=== PATIENT | female | born 1965 | race Caucasian/White ===

== ENCOUNTER 2020-11-22 04:19 | Emergency (ER) | payer OTHER ==
[~2020-11-22] VITALS: Ht 157.5 cm; Wt 54.5 kg
[~2020-11-22 04:19] MED LIST: LEVO112T25 PO; NOR5T PO; OXYC20TA55 PO; ZOF4T PO
[2020-11-22] MEDS ORDERED: ondansetron/PF 4mg/2ml inj IV ONE (04:40)
[2020-11-22] MEDS ORDERED: normal saline 1000ML IV soln IVB ONE (04:40)
[2020-11-22] MEDS ORDERED: morphine 4 MG/ML inj SYRINge IV ONE ×2 (04:50→06:55)
[2020-11-22 05:49] LABS: ALANINE AMINOTRANSFERASE 23 U/L (12-78); ALBUMIN 4.7 G/DL (3.4-5.0); ALBUMIN/GLOBULIN RATIO 1.3 (1.1-1.5); ALKALINE PHOSPHATASE 84 IU/L (46-116); ANION GAP 15 (8-16); ASPARTATE AMINO TRANSFERASE 33 U/L (10-37); BILIRUBIN,TOTAL 0.7 MG/DL (0.1-1.0); BLOOD UREA NITROGEN 26 MG/DL (7-18); BUN/CREATININE RATIO 24.1 (6.6-38.0); CALCIUM 9.3 MG/DL (8.5-10.1); CHLORIDE 102 MMOL/L (99-107); CREATININE 1.08 MG/DL (0.40-0.90); GLUCOSE 163 MG/DL (70-104); POTASSIUM 3.5 MMOL/L (3.5-5.1); SODIUM 142 MMOL/L (135-145); TOTAL CARBON DIOXIDE 25.2 MMOL/L (24-32); TOTAL PROTEIN 8.2 G/DL (6.4-8.2); eGFR 52 ML/MIN
[2020-11-22 06:09] LABS: BASOPHILS # (AUTO) 0.2 X10'3 (0-0.2); EOSINOPHILS % (AUTO) 0.1 % (0-6); HEMATOCRIT 44.2 % (35.0-45.0); HEMOGLOBIN 14.4 g/dl (12.0-16.0); LYMPHOCYTES # (AUTO) 2.4 X10'3 (1.1-4.8); LYMPHOCYTES % (AUTO) 12.1 % (21-51); MEAN CORPUSCULAR HEMOGLOBIN 31.4 PG (27.0-31.0); MEAN CORPUSCULAR HGB CONC 32.7 g/dL (33.0-36.5); MEAN CORPUSCULAR VOLUME 96.1 FL (78-98); MEAN PLATELET VOLUME 8.3 FL (7.4-10.4); MONOCYTES # (AUTO) 1.2 X10'3 (0-0.9); NEUTROPHILS # (AUTO) 16.2 X10'3 (1.8-7.7); NEUTROPHILS % (AUTO) 80.8 % (42-75); PLATELET COUNT 343 X10'3 (140-440); RED CELL DISTRIBUTION WIDTH 13.4 % (11.5-14.5)
[2020-11-22 06:21] LABS: CLARITY,URINE SLIGHTLY CLOUDY (Clear); COLOR,URINE YELLOW (Yellow); GLUCOSE, URINE NEGATIVE (Neg); KETONES,URINE 15 mg/dl (Neg); LEUKOCYTE ESTERASE ,URINE NEGATIVE (Neg); NITRITES, URINE NEGATIVE (Neg); OCCULT BLOOD,URINE NEGATIVE (Neg); PROTEIN,URINE TRACE mg/dl (Neg); UROBILINOGEN,URINE 0.2 E.U/dL (0.2-1.0)
[2020-11-22 06:44] LABS: UA COLLECTION TYPE CLN CATCH MIDSTREAM
[2020-11-22 06:49] LABS: BACTERIA,URINE FEW /HPF (Neg); HYALINE CASTS >30 /LPF (NEGATIVE); MUCUS STRANDS MANY /LPF (Neg)
[2020-11-22 06:50] LABS: RBC,URINE 0-2 /HPF (0-2); SQUAMOUS EPITHELIAL CELL,UR FEW /LPF (FEW); WBC,URINE 0-4 /HPF (0-4)
[2020-11-22 06:51] LABS: TRANSITIONAL EPI CELLS,URINE FEW /HPF
[2020-11-22 07:08] VITALS: BP 148/97
== END 2020-11-22 07:27 | disposition home or self-care (01) ==
LOC: ER 04:21
DX: S70.12XA Contusion of left thigh, initial encounter (principal); S16.1XXA Strain of muscle, fascia and tendon at neck level, initial encounter; S09.90XA Unspecified injury of head, initial encounter; S50.312A Abrasion of left elbow, initial encounter; M54.2 Cervicalgia; R11.2 Nausea with vomiting, unspecified; F12.90 Cannabis use, unspecified, uncomplicated; Z72.89 Other problems related to lifestyle; Z56.0 Unemployment, unspecified; Z98.890 Other specified postprocedural states; Z88.2 Allergy status to sulfonamides; Z88.8 Allergy status to other drugs, medicaments and biological substances; Z79.899 Other long term (current) drug therapy; X58.XXXA Exposure to other specified factors, initial encounter; Y93.89 Activity, other specified; Y92.89 Other specified places as the place of occurrence of the external cause; Y99.8 Other external cause status
CPT/HCPCS: 36415; 70450; 72070; 72125; 80053; 81001; 85025; 96361; 96374; 96375; 96376; 99285; J2270; J2405; J7030

== ENCOUNTER 2020-11-23 21:54 | Emergency (ER) | payer OTHER ==
[~2020-11-23] VITALS: Ht 157.5 cm; Wt 60.5 kg
[2020-11-24] MEDS ORDERED: ondansetron/PF 4mg/2ml inj IV ONE ×2 (00:05→02:25)
[2020-11-24] MEDS ORDERED: normal saline 1000ML IV soln IVB ONE (00:05)
[2020-11-24] MEDS ORDERED: morphine 4 MG/ML inj SYRINge IV ONE ×2 (01:00→01:50)
[2020-11-24] MEDS ORDERED: ONDA4TAB6 PO (01:50)
[2020-11-24] MEDS ORDERED: HYDR-3965 PO (01:50)
[2020-11-24 02:34] VITALS: BP 136/98
== END 2020-11-24 02:48 | disposition home or self-care (01) ==
LOC: ER 21:56
DX: S16.1XXA Strain of muscle, fascia and tendon at neck level, initial encounter (principal); R11.2 Nausea with vomiting, unspecified; R51.9 Headache, unspecified; F12.90 Cannabis use, unspecified, uncomplicated; Z98.890 Other specified postprocedural states; Z56.0 Unemployment, unspecified; Z88.2 Allergy status to sulfonamides; Z88.8 Allergy status to other drugs, medicaments and biological substances; Z79.899 Other long term (current) drug therapy; W18.39XA Other fall on same level, initial encounter; Y93.89 Activity, other specified; Y92.89 Other specified places as the place of occurrence of the external cause; Y99.8 Other external cause status
CPT/HCPCS: 96361; 96374; 96375; 96376; 99284; J2270; J2405; J7030

== ENCOUNTER 2022-07-22 20:26 | Emergency (ER) | payer OTHER ==
[~2022-07-22] VITALS: Ht 157.5 cm; Wt 56.8 kg
[~2022-07-22 20:26] MED LIST changes: +ONDA4TAB6 PO
[2022-07-22 20:42] VITALS: BP 160/97
[2022-07-23] MEDS ORDERED: normal saline 1000ML IV soln IVB ONE (01:50)
[2022-07-23] MEDS ORDERED: diphenhydrAMINE 50 mg/ml inj IV ONE (01:50)
[2022-07-23] MEDS ORDERED: morphine 4 MG/ML inj SYRINge IV ONE (01:50)
[2022-07-23] MEDS ORDERED: ketorolac trometh. 30mg/ml inj. IV ONE (01:50)
[2022-07-23] MEDS ORDERED: HYDROcodone/acetaminophen 10/325mg tab PO ONE (03:40)
[2022-07-23] MEDS ORDERED: haloperidol lactate 5mg/ml inj IM ONE (03:40)
[2022-07-23] MEDS ORDERED: diphenhydrAMINE 50 mg/ml inj IM ONE (03:40)
[2022-07-23] MEDS ORDERED: metoclopramide 5 mg/ml inj IV ONE (03:40)
[2022-07-23] MEDS ORDERED: orphenadrine citrate 60mg/2ml inj. IM ONE (03:45)
== END 2022-07-23 04:21 | disposition home or self-care (01) ==
LOC: ER 20:27
DX: M54.2 Cervicalgia (principal); R11.2 Nausea with vomiting, unspecified; G62.9 Polyneuropathy, unspecified; F12.10 Cannabis abuse, uncomplicated; E03.9 Hypothyroidism, unspecified; Z88.2 Allergy status to sulfonamides; Z88.8 Allergy status to other drugs, medicaments and biological substances; Z79.899 Other long term (current) drug therapy; Z79.1 Long term (current) use of non-steroidal anti-inflammatories (NSAID); Z56.0 Unemployment, unspecified
CPT/HCPCS: 96361; 96372; 96374; 96375; 99284; J1200; J1885; J2270; J2360; J7030

== ENCOUNTER 2022-08-25 00:41 | Emergency (ER) | payer OTHER ==
[~2022-08-25] VITALS: Ht 157.5 cm; Wt 125.0 kg
[2022-08-25] MEDS ORDERED: ondansetron 4mg rapidly disintigrating tab PO ONE (01:20)
[2022-08-25] MEDS ORDERED: HYDROcodone/acetaminophen 10/325mg tab PO ONE (01:20)
[2022-08-25] MEDS ORDERED: ONDA4TAB12 PO (01:47)
[2022-08-25] MEDS ORDERED: ketorolac trometh. 30mg/ml inj. IV ONE (01:55)
[2022-08-25] MEDS ORDERED: normal saline 1000ML IV soln IVB ONE (01:55)
[2022-08-25 04:07] VITALS: BP 173/98
[2022-08-25] MEDS ORDERED: ORPH100T2 PO (17:31)
== END 2022-08-25 04:09 | disposition home or self-care (01) ==
LOC: ER 00:41
DX: M54.2 Cervicalgia (principal); G62.9 Polyneuropathy, unspecified; R11.2 Nausea with vomiting, unspecified; R51.9 Headache, unspecified; R20.0 Anesthesia of skin; G89.29 Other chronic pain; F12.90 Cannabis use, unspecified, uncomplicated; Z56.0 Unemployment, unspecified; Z72.89 Other problems related to lifestyle; Z98.890 Other specified postprocedural states; Z88.2 Allergy status to sulfonamides; Z88.8 Allergy status to other drugs, medicaments and biological substances; Z79.899 Other long term (current) drug therapy
CPT/HCPCS: 96374; 99283; J1885; J7030

== ENCOUNTER 2022-08-25 14:40 | Emergency (ER) | payer OTHER ==
[~2022-08-25] VITALS: Ht 157.5 cm; Wt 56.8 kg
[~2022-08-25 14:40] MED LIST changes: +ONDA4TAB12 PO
[2022-08-25 14:55] VITALS: BP 183/110
[2022-08-25] MEDS ORDERED: ondansetron 4mg rapidly disintigrating tab PO ONE (16:30)
[2022-08-25] MEDS ORDERED: morphine 4 MG/ML inj SYRINge IV ONE (16:30)
[2022-08-25] MEDS ORDERED: diphenhydrAMINE 50 mg/ml inj IV ONE (16:30)
[2022-08-25] MEDS ORDERED: normal saline 1000ML IV soln IVB ONE (16:30)
[2022-08-25] MEDS ORDERED: orphenadrine citrate 60mg/2ml inj. IM ONE (17:15)
[2022-08-25] MEDS ORDERED: ORPH100T2 PO (17:31)
== END 2022-08-25 18:01 | disposition home or self-care (01) ==
LOC: ER 14:41
DX: S16.1XXA Strain of muscle, fascia and tendon at neck level, initial encounter (principal); G89.29 Other chronic pain; M54.50 Low back pain, unspecified; F12.90 Cannabis use, unspecified, uncomplicated; Z88.2 Allergy status to sulfonamides; Z88.1 Allergy status to other antibiotic agents; Z88.8 Allergy status to other drugs, medicaments and biological substances; Z56.0 Unemployment, unspecified; W01.0XXA Fall on same level from slipping, tripping and stumbling without subsequent striking against object, initial encounter; Y93.89 Activity, other specified; Y92.89 Other specified places as the place of occurrence of the external cause; Y99.8 Other external cause status
CPT/HCPCS: 96361; 96372; 96374; 96375; 99284; J1200; J2270; J2360; J7030

== ENCOUNTER 2022-09-05 04:08 | Emergency (ER) | payer OTHER ==
[~2022-09-05] VITALS: Ht 157.5 cm; Wt 56.8 kg
[~2022-09-05 04:08] MED LIST changes: +ORPH100T2 PO
[2022-09-05 04:19] VITALS: BP 146/103
--- NOTE | 2022-09-05 05:08 | NUR ---
pt was being very demanding for benadryl and morphine and was so very upset that the doctor is not giving this to her. Wanted to talk to advocate. Explained to the patient that this staff writer cannot influence what the doctor does or doesn't order. She than raised her voice and said she would go off property and come back when there is a different doctor until she gets what she wants. She also said that [facility] and come back here until she gets what she wants. lead burner supervisor, Kristine was notified who also came down here and talked to the patient. Kristine states the patient said the same things to her.
[2022-09-05] MEDS ORDERED: ketorolac trometh inj. 60 MG/2 ML VIAL IM ONE (05:25)
== END 2022-09-05 05:37 | disposition home or self-care (01) ==
LOC: ER 04:09
DX: M54.2 Cervicalgia (principal); G89.29 Other chronic pain; M79.2 Neuralgia and neuritis, unspecified; E07.9 Disorder of thyroid, unspecified; M54.9 Dorsalgia, unspecified; Z88.2 Allergy status to sulfonamides; Z88.8 Allergy status to other drugs, medicaments and biological substances; Z88.1 Allergy status to other antibiotic agents; Z79.899 Other long term (current) drug therapy
CPT/HCPCS: 96372; 99283; J1885

== ENCOUNTER 2022-09-05 07:10 | Emergency (ER) | payer OTHER ==
[~2022-09-05] VITALS: Ht 157.5 cm; Wt 156.0 kg
[2022-09-05] MEDS ORDERED: LIDOcaine 5% patch TP STA (09:41)
[2022-09-05] MEDS ORDERED: acetaminophen 325mg tablet PO ONE (09:45)
[2022-09-05 12:01] VITALS: BP 110/96
== END 2022-09-05 10:10 | disposition home or self-care (01) ==
LOC: ER 07:11
DX: M54.2 Cervicalgia (principal); E07.9 Disorder of thyroid, unspecified; G89.29 Other chronic pain; M54.9 Dorsalgia, unspecified; F12.10 Cannabis abuse, uncomplicated; Z88.2 Allergy status to sulfonamides; Z88.5 Allergy status to narcotic agent; Z88.8 Allergy status to other drugs, medicaments and biological substances; Z79.899 Other long term (current) drug therapy
CPT/HCPCS: 99283

== ENCOUNTER 2022-09-06 04:00 | Emergency (ER) | payer OTHER ==
[~2022-09-06] VITALS: Ht 157.5 cm; Wt 53.0 kg
[2022-09-06] MEDS ORDERED: ondansetron/PF 4mg/2ml inj IV ONE (07:35)
[2022-09-06] MEDS ORDERED: normal saline 1000ML IV soln IV ONE (07:35)
[2022-09-06] MEDS ORDERED: diphenhydrAMINE 50 mg/ml inj IV ONE (07:35)
[2022-09-06 08:28] LABS: BASOPHILS # (AUTO) 0.1 X10'3 (0-0.2); BASOPHILS % (AUTO) 0.5 % (0-1); EOSINOPHILS % (AUTO) 0.3 % (0-6); HEMATOCRIT 45.5 % (35.0-45.0); HEMOGLOBIN 14.9 g/dl (12.0-16.0); LYMPHOCYTES # (AUTO) 2.9 X10'3 (1.1-4.8); LYMPHOCYTES % (AUTO) 25.8 % (21-51); MEAN CORPUSCULAR HGB CONC 32.7 g/dL (33.0-36.5); MEAN CORPUSCULAR VOLUME 94.9 FL (78-98); MONOCYTES # (AUTO) 0.6 X10'3 (0-0.9); MONOCYTES % (AUTO) 5.7 % (2-12); NEUTROPHILS # (AUTO) 7.6 X10'3 (1.8-7.7); NEUTROPHILS % (AUTO) 67.7 % (42-75); PLATELET COUNT 320 X10'3 (140-440); RED BLOOD COUNT 4.79 X10'6 (4.20-5.60); WHITE BLOOD COUNT 11.2 X10'3 (4.5-11.0)
[2022-09-06 08:48] LABS: ALANINE AMINOTRANSFERASE 23 U/L (12-78); ALBUMIN 4.7 G/DL (3.4-5.0); ALBUMIN/GLOBULIN RATIO 1.4 (1.1-1.5); ALKALINE PHOSPHATASE 81 IU/L (46-116); ANION GAP 11 (8-16); ASPARTATE AMINO TRANSFERASE 28 U/L (10-37); BILIRUBIN,TOTAL 0.7 MG/DL (0.1-1.0); BLOOD UREA NITROGEN 20 MG/DL (7-18); CALCIUM 9.7 MG/DL (8.5-10.1); CHLORIDE 104 MMOL/L (99-107); CREATININE 0.91 MG/DL (0.40-0.90); GLUCOSE 125 MG/DL (70-104); POTASSIUM 3.9 MMOL/L (3.5-5.1); SODIUM 142 MMOL/L (135-145); TOTAL CARBON DIOXIDE 27.4 MMOL/L (24-32); TOTAL PROTEIN 8.1 G/DL (6.4-8.2); eGFR 63 ML/MIN
[2022-09-06 09:44] VITALS: BP 154/82
== END 2022-09-06 09:46 | disposition home or self-care (01) ==
LOC: ER 04:00
DX: M54.2 Cervicalgia (principal); E86.0 Dehydration; R20.8 Other disturbances of skin sensation; G89.29 Other chronic pain; M54.9 Dorsalgia, unspecified; F12.10 Cannabis abuse, uncomplicated; Z56.0 Unemployment, unspecified; Z88.2 Allergy status to sulfonamides; Z79.899 Other long term (current) drug therapy; Z88.1 Allergy status to other antibiotic agents; Z79.1 Long term (current) use of non-steroidal anti-inflammatories (NSAID)
CPT/HCPCS: 36415; 80053; 85025; 96361; 96374; 96375; 99284; J1200; J2405; J7030

== ENCOUNTER 2022-09-13 15:28 | Emergency (ER) | payer OTHER ==
[~2022-09-13] VITALS: Ht 157.5 cm; Wt 56.0 kg
[2022-09-13] MEDS ORDERED: ondansetron/PF 4mg/2ml inj IV ONE (18:40)
[2022-09-13] MEDS ORDERED: diazepam inj 5 MG/ML inj. IV ONE (18:40)
[2022-09-13] MEDS ORDERED: normal saline 1000ml 1,000 ML IV ONE (18:40)
[2022-09-13] MEDS ORDERED: ketorolac trometh. 30mg/ml inj. IV ONE (18:40)
[2022-09-13] MEDS ORDERED: DICL100G30 TOP (20:19)
[2022-09-13] MEDS ORDERED: LIDO700A32 TOP (20:19)
[2022-09-13] MEDS ORDERED: diphenhydrAMINE 25mg capsule PO ONE (20:20)
[2022-09-13] MEDS ORDERED: morphine 4 MG/ML inj SYRINge IV ONE (20:20)
[2022-09-13 20:38] VITALS: BP 122/76
== END 2022-09-13 20:39 | disposition home or self-care (01) ==
LOC: ER 15:29
DX: G89.29 Other chronic pain (principal); R51.9 Headache, unspecified; R11.2 Nausea with vomiting, unspecified; E86.0 Dehydration; F12.90 Cannabis use, unspecified, uncomplicated; Z56.0 Unemployment, unspecified; Z72.89 Other problems related to lifestyle; Z79.899 Other long term (current) drug therapy
CPT/HCPCS: 96361; 96374; 96375; 99284; J1885; J2270; J2405; J3360; J7030; Q0163

== ENCOUNTER 2023-08-28 08:20 | Emergency (ER) | payer OTHER ==
[~2023-08-28] VITALS: Ht 157.5 cm; Wt 53.7 kg
[~2023-08-28 08:20] MED LIST changes: +DICL100G59 TOP; +LIDO700A32 TOP; -ORPH100T2 PO; +ORPH100T4 PO
[2023-08-28 08:26] VITALS: TEMP 98
[2023-08-28] MEDS ORDERED: dexamethasone sod phosphate 10mg/ml inj IM STA (09:28)
[2023-08-28] MEDS ORDERED: ondansetron/PF 4mg/2ml inj IM ONE (09:30)
[2023-08-28] MEDS ORDERED: diphenhydrAMINE 50 mg/ml inj IM ONE (09:30)
[2023-08-28] MEDS ORDERED: ketorolac trometh inj. 60 MG/2 ML VIAL IM ONE (09:30)
[2023-08-28] MEDS ORDERED: cyclobenzaprine 10mg tablet PO ONE (09:30)
[2023-08-28] MEDS ORDERED: ondansetron 4mg rapidly disintigrating tab PO ONE (10:35)
[2023-08-28] MEDS ORDERED: magnesium sulf injection 1 GM in normal saline 50ml IV soln 50 ML IV ONE (10:55)
[2023-08-28] MEDS ORDERED: metoclopramide 5 mg/ml inj IV ONE (11:00)
[2023-08-28] MEDS ORDERED: diphenhydrAMINE 50 mg/ml inj IV ONE (11:00)
[2023-08-28 11:52] LABS: BASOPHILS # (AUTO) 0.1 X10'3 (0-0.2); BASOPHILS % (AUTO) 0.6 % (0-1); EOSINOPHILS % (AUTO) 0.2 % (0-6); HEMATOCRIT 47.1 % (35.0-45.0); HEMOGLOBIN 15.5 g/dl (12.0-16.0); LYMPHOCYTES # (AUTO) 2.3 X10'3 (1.1-4.8); LYMPHOCYTES % (AUTO) 18.9 % (21-51); MEAN CORPUSCULAR HEMOGLOBIN 31.3 PG (27.0-31.0); MEAN CORPUSCULAR HGB CONC 32.9 g/dL (33.0-36.5); MEAN CORPUSCULAR VOLUME 95.1 FL (78-98); MEAN PLATELET VOLUME 7.8 FL (7.4-10.4); MONOCYTES # (AUTO) 0.8 X10'3 (0-0.9); MONOCYTES % (AUTO) 6.3 % (2-12); NEUTROPHILS # (AUTO) 8.9 X10'3 (1.8-7.7); PLATELET COUNT 282 X10'3 (140-440); RED BLOOD COUNT 4.96 X10'6 (4.20-5.60); WHITE BLOOD COUNT 12.1 X10'3 (4.5-11.0)
[2023-08-28] MEDS ORDERED: MAGNESIUM IV ONE (12:10)
[2023-08-28] MEDS ORDERED: NS IV ONE (12:10)
[2023-08-28 12:13] LABS: ALANINE AMINOTRANSFERASE 17 U/L (12-78); ALBUMIN 4.4 G/DL (3.4-5.0); ALBUMIN/GLOBULIN RATIO 1.2 (1.1-1.5); ALKALINE PHOSPHATASE 87 IU/L (46-116); ANION GAP 9 (8-16); ASPARTATE AMINO TRANSFERASE 22 U/L (10-37); BILIRUBIN,TOTAL 0.5 MG/DL (0.1-1.0); BLOOD UREA NITROGEN 25 MG/DL (7-18); BUN/CREATININE RATIO 24.5 (10.0-20.0); CALCIUM 9.8 MG/DL (8.5-10.1); CHLORIDE 101 MMOL/L (99-107); CREATININE 1.02 MG/DL (0.40-0.90); GLUCOSE 111 MG/DL (70-104); POTASSIUM 4.2 MMOL/L (3.5-5.1); SODIUM 139 MMOL/L (135-145); TOTAL CARBON DIOXIDE 28.7 MMOL/L (24-32); TOTAL PROTEIN 8.2 G/DL (6.4-8.2); eCRCL 46 ML/MIN; eGFR 55 ML/MIN
[2023-08-28 12:21] LABS: MAGNESIUM 2.2 MG/DL (1.5-2.4); PRO BRAIN NATRIURETIC PEPTIDE 47 PG/ML (0-125)
[2023-08-28] MEDS ORDERED: orphenadrine citrate 60mg/2ml inj. IM ONE (13:45)
[2023-08-28 15:32] LABS: BILIRUBIN,URINE NEGATIVE (Neg); CLARITY,URINE CLEAR (Clear); COLOR,URINE YELLOW (Yellow); GLUCOSE, URINE NEGATIVE (Neg); KETONES,URINE NEGATIVE (Neg); LEUKOCYTE ESTERASE ,URINE NEGATIVE (Neg); NITRITES, URINE NEGATIVE (Neg); OCCULT BLOOD,URINE NEGATIVE (Neg); PROTEIN,URINE NEGATIVE (Neg); UROBILINOGEN,URINE 0.2 E.U/dL (0.2-1.0)
[2023-08-28 15:38] LABS: UA COLLECTION TYPE CLN CATCH MIDSTREAM
[2023-08-28] MEDS ORDERED: HYDROcodone/acetaminophen 10/325mg tab PO ONE (15:40)
[2023-08-28] MEDS ORDERED: CYCL-394 PO (15:43)
[2023-08-28] MEDS ORDERED: LIDO120C3 TP (15:43)
[2023-08-28 15:48] LABS: URINE AMPHETAMINE SCREEN NEGATIVE (Neg); URINE BARBITUATE SCREEN NEGATIVE (Neg); URINE BENZODIAZEPINES SCREEN NEGATIVE (Neg); URINE CANNABINOID SCREEN POSITIVE (Neg); URINE COCAINE SCREEN NEGATIVE (Neg); URINE METHADONE SCREEN NEGATIVE (Neg); URINE OPIATE SCREEN POSITIVE (Neg); URINE PHENCYCLIDINE SCREEN NEGATIVE (Neg)
[2023-08-28 16:52] VITALS: BP 145/91; PULSE 98; RESP 14; O2SAT 100
[2023-08-29] MEDS ORDERED: ONDA4TAB12 PO (23:22)
[2023-08-29] MEDS ORDERED: IBUP-1984 PO (23:22)
[2023-08-29] MEDS ORDERED: PRED20TA PO ×2 (23:22)
[2023-08-29] MEDS ORDERED: LIDO1ADH19 TOP (23:24)
== END 2023-08-28 16:56 | disposition home or self-care (01) ==
LOC: ER 08:20
DX: M54.2 Cervicalgia (principal); R42 Dizziness and giddiness; E07.9 Disorder of thyroid, unspecified; G89.29 Other chronic pain; M54.9 Dorsalgia, unspecified; F12.10 Cannabis abuse, uncomplicated; Z59.00 Homelessness unspecified; Z88.2 Allergy status to sulfonamides; Z88.8 Allergy status to other drugs, medicaments and biological substances; Z88.5 Allergy status to narcotic agent
CPT/HCPCS: 36415; 71045; 72050; 80053; 80305; 81003; 83735; 83880; 84484; 85025; 93005; 96365; 96372; 96375; 99285; J1200; J2360; J3475; J3490

== ENCOUNTER 2023-08-29 20:52 | Emergency (ER) | payer OTHER ==
[~2023-08-29] VITALS: Ht 154.9 cm; Wt 52.1 kg
[~2023-08-29 20:52] MED LIST changes: +CYCL-394 PO; +LIDO120C3 TP
[2023-08-29] MEDS: ondansetron/PF 4mg/2ml inj IV ONE (22:25)
[2023-08-29] MEDS: ketorolac tromethamine 15mg/ml inj. IV ONE (22:27)
[2023-08-29] MEDS: normal saline 1000ML IV soln IVB ONE (22:28)
[2023-08-29 23:16] VITALS: BP 145/94; PULSE 77; RESP 16; TEMP 97.5; O2SAT 99
[2023-08-29] MEDS ORDERED: IBUP-1984 PO (23:22)
[2023-08-29] MEDS ORDERED: PRED20TA PO (23:22)
[2023-08-29] MEDS ORDERED: ONDA4TAB12 PO (23:22)
[2023-08-29] MEDS ORDERED: LIDO1ADH19 TOP (23:24)
== END 2023-08-29 23:35 | disposition home or self-care (01) ==
LOC: ER 20:53
DX: S16.1XXA Strain of muscle, fascia and tendon at neck level, initial encounter (principal); F12.90 Cannabis use, unspecified, uncomplicated; M54.2 Cervicalgia; G89.29 Other chronic pain; Z88.2 Allergy status to sulfonamides; Z88.1 Allergy status to other antibiotic agents; Z88.8 Allergy status to other drugs, medicaments and biological substances; Z79.1 Long term (current) use of non-steroidal anti-inflammatories (NSAID); Z79.2 Long term (current) use of antibiotics; Z79.899 Other long term (current) drug therapy; X58.XXXA Exposure to other specified factors, initial encounter; Y93.89 Activity, other specified; Y92.89 Other specified places as the place of occurrence of the external cause; Y99.8 Other external cause status
CPT/HCPCS: 96361; 96374; 96375; 99284; J1885; J2405; J7030

== ENCOUNTER 2024-07-05 20:24 | Emergency (ER) | payer OTHER ==
[~2024-07-05] VITALS: Ht 157.5 cm; Wt 49.0 kg
[~2024-07-05 20:24] MED LIST changes: -CYCL-394 PO; +LIDO1ADH19 TOP; +ONDA-243 PO; -ONDA4TAB12 PO
[2024-07-05] MEDS: ondansetron/PF 4mg/2ml inj IV ONE (20:41)
[2024-07-05 20:56] LABS: BASOPHILS # (AUTO) 0.1 X10'3 (0-0.2); BASOPHILS % (AUTO) 0.9 % (0-1); EOSINOPHILS % (AUTO) 0 % (0-6); HEMATOCRIT 45.8 % (35.0-45.0); HEMOGLOBIN 15.6 g/dl (12.0-16.0); LYMPHOCYTES # (AUTO) 1.5 X10'3 (1.1-4.8); MEAN CORPUSCULAR HEMOGLOBIN 32.6 PG (27.0-31.0); MEAN CORPUSCULAR HGB CONC 34.1 g/dL (33.0-36.5); MEAN CORPUSCULAR VOLUME 95.4 FL (78-98); MEAN PLATELET VOLUME 7.8 FL (7.4-10.4); MONOCYTES # (AUTO) 0.2 X10'3 (0-0.9); NEUTROPHILS # (AUTO) 10.8 X10'3 (1.8-7.7); NEUTROPHILS % (AUTO) 85.1 % (42-75); PLATELET COUNT 302 X10'3 (140-440); RED CELL DISTRIBUTION WIDTH 13.3 % (11.5-14.5); WHITE BLOOD COUNT 12.6 X10'3 (4.5-11.0)
[2024-07-05] MEDS: morphine 4 MG/ML inj SYRINge IV ONE (21:01)
[2024-07-05] MEDS: haloperidol lactate 5mg/ml inj IVH ONE (21:08)
[2024-07-05 21:14] LABS: ALANINE AMINOTRANSFERASE 18 U/L (12-78); ALBUMIN 4.2 G/DL (3.4-5.0); ALBUMIN/GLOBULIN RATIO 1.1 (1.1-1.5); ALKALINE PHOSPHATASE 91 IU/L (46-116); ANION GAP 13 (8-16); ASPARTATE AMINO TRANSFERASE 21 U/L (10-37); BILIRUBIN,DIRECT 0.2 MG/DL (0-0.3); BILIRUBIN,TOTAL 0.7 MG/DL (0.1-1.0); BLOOD UREA NITROGEN 19 MG/DL (7-18); BUN/CREATININE RATIO 16.7 (10.0-20.0); CALCIUM 9.2 MG/DL (8.5-10.1); CHLORIDE 103 MMOL/L (99-107); CREATININE 1.14 MG/DL (0.40-0.90); GLUCOSE 197 MG/DL (70-104); LIPASE 42 U/L (16-77); POTASSIUM 3.5 MMOL/L (3.5-5.1); SODIUM 142 MMOL/L (135-145); TOTAL CARBON DIOXIDE 26.2 MMOL/L (24-32); TOTAL PROTEIN 8.2 G/DL (6.4-8.2); eCRCL 41 ML/MIN; eGFR 49 ML/MIN
[2024-07-05] MEDS ORDERED: OXYC-145 PO (23:12)
[2024-07-05] MEDS ORDERED: ONDA-245 PO (23:12)
[2024-07-05] MEDS: oxyCODONE/APAP 5-325mg tablet PO ONE (23:38)
[2024-07-05] MEDS: normal saline 1000ML IV soln IVB ONE (23:38)
[2024-07-06 00:34] VITALS: BP 151/54; PULSE 81; RESP 20; TEMP 100.1; O2SAT 97
== END 2024-07-06 00:37 | disposition home or self-care (01) ==
LOC: ER 20:24
DX: G89.29 Other chronic pain (principal); M54.2 Cervicalgia; R51.9 Headache, unspecified; R11.2 Nausea with vomiting, unspecified; F12.90 Cannabis use, unspecified, uncomplicated; Z98.890 Other specified postprocedural states; Z88.2 Allergy status to sulfonamides; Z88.8 Allergy status to other drugs, medicaments and biological substances
CPT/HCPCS: 36415; 80048; 80076; 83690; 85025; 96361; 96374; 96375; 99284; J1630; J2270; J2405; J7030

== ENCOUNTER 2024-07-10 12:42 | Emergency (ER) | payer OTHER ==
[~2024-07-10] VITALS: Ht 157.5 cm; Wt 57.3 kg
[~2024-07-10 12:42] MED LIST changes: +ONDA-245 PO; +OXYC-145 PO
[2024-07-10 13:39] LABS: ABG HCO3 23.2 mmol/L (21.0-28.0); ABG OXYGEN SATURATION 97.9 % (94.0-98.0); ABG PCO2 (T) 30.8 mmHg (32.0-45.0); ABG PH (T) 7.494 (7.350-7.450); ABG PO2 (T) 91.5 mmHg (83.0-108.0); ALLEN'S TEST POSITIVE; FCOHb 0.4 % (0.5-1.5); FHHb 2.1 % (0.0-5.0); FMetHb 0.1 % (0.0-1.5); FO2Hb 97.4 % (94.0-98.0); MODE ROOM AIR; TOTAL HEMOGLOBIN 16.2 G/dl (12.0-16.0)
[2024-07-10 13:40] LABS: BASOPHILS # (AUTO) 0.1 X10'3 (0-0.2); BASOPHILS % (AUTO) 0.5 % (0-1); EOSINOPHILS % (AUTO) 0.1 % (0-6); HEMATOCRIT 48.6 % (35.0-45.0); HEMOGLOBIN 16.2 g/dl (12.0-16.0); LYMPHOCYTES # (AUTO) 2.7 X10'3 (1.1-4.8); LYMPHOCYTES % (AUTO) 22.8 % (21-51); MEAN CORPUSCULAR HEMOGLOBIN 32.6 PG (27.0-31.0); MEAN CORPUSCULAR HGB CONC 33.4 g/dL (33.0-36.5); MEAN CORPUSCULAR VOLUME 97.7 FL (78-98); MEAN PLATELET VOLUME 8.3 FL (7.4-10.4); MONOCYTES # (AUTO) 0.8 X10'3 (0-0.9); MONOCYTES % (AUTO) 6.5 % (2-12); NEUTROPHILS # (AUTO) 8.3 X10'3 (1.8-7.7); NEUTROPHILS % (AUTO) 70.1 % (42-75); PLATELET COUNT 306 X10'3 (140-440); RED BLOOD COUNT 4.97 X10'6 (4.20-5.60); RED CELL DISTRIBUTION WIDTH 13.4 % (11.5-14.5); WHITE BLOOD COUNT 11.8 X10'3 (4.5-11.0)
[2024-07-10 13:57] LABS: ALBUMIN 4.4 G/DL (3.4-5.0); ANION GAP 12 (8-16); BLOOD UREA NITROGEN 25 MG/DL (7-18); BUN/CREATININE RATIO 23.1 (10.0-20.0); CALCIUM 9.1 MG/DL (8.5-10.1); CHLORIDE 104 MMOL/L (99-107); CREATININE 1.08 MG/DL (0.40-0.90); GLUCOSE 176 MG/DL (70-104); POTASSIUM 3.7 MMOL/L (3.5-5.1); SODIUM 144 MMOL/L (135-145); TOTAL CARBON DIOXIDE 27.7 MMOL/L (24-32); eCRCL 43 ML/MIN; eGFR 52 ML/MIN
[2024-07-10] MEDS: ondansetron/PF 4mg/2ml inj IV ONE (15:59)
[2024-07-10] MEDS: HYDROcodone/acetaminophen 5mg/325mg tablet PO ONE (16:00)
[2024-07-10 16:33] VITALS: BP 134/78; PULSE 78; RESP 16; TEMP 97.8; O2SAT 97
== END 2024-07-10 16:35 | disposition home or self-care (01) ==
LOC: ER 12:42
DX: T59.811A Toxic effect of smoke, accidental (unintentional), initial encounter (principal); G89.29 Other chronic pain; Z88.2 Allergy status to sulfonamides; Z88.8 Allergy status to other drugs, medicaments and biological substances; Z88.5 Allergy status to narcotic agent; Z79.899 Other long term (current) drug therapy; Y92.89 Other specified places as the place of occurrence of the external cause
CPT/HCPCS: 36415; 36600; 71045; 80048; 82803; 85018; 85025; 93005; 96374; 99285; J2405

== ENCOUNTER 2024-07-13 02:27 | Emergency (ER) | payer OTHER ==
[~2024-07-13] VITALS: Ht 162.6 cm; Wt 60.0 kg
[2024-07-13 02:58] VITALS: BP 154/94; PULSE 79; TEMP 98; O2SAT 98
[2024-07-13] MEDS: ketorolac trometh 15mg/ml vial 15 MG/ML ML IV ONE (03:02)
[2024-07-13] MEDS: ondansetron/PF 4mg/2ml inj IV ONE (03:02)
[2024-07-13] MEDS: OXYcodone (OXYCONTIN) Ext Release 15 MG TAB.SR.12H PO ONE (03:10)
[2024-07-13] MEDS: proCHLORperazine 10 MG/2 ml inj IV ONE (03:18)
[2024-07-13 03:32] VITALS: RESP 16
[2024-07-13] MEDS: morphine 4 MG/ML inj SYRINge IM ONE (03:32)
== END 2024-07-13 03:44 | disposition home or self-care (01) ==
LOC: ER 02:28
DX: M43.6 Torticollis (principal); Z88.2 Allergy status to sulfonamides; Z88.8 Allergy status to other drugs, medicaments and biological substances; Z98.890 Other specified postprocedural states; F12.90 Cannabis use, unspecified, uncomplicated
CPT/HCPCS: 96372; 96374; 96375; 99284; J1885; J2270; J2405

== ENCOUNTER 2024-10-20 05:16 | Emergency (ER) | payer OTHER ==
[~2024-10-20] VITALS: Ht 157.5 cm; Wt 54.5 kg
[2024-10-20] MEDS: ketorolac trometh 15mg/ml vial 15 MG/ML ML IV ONE (07:14)
[2024-10-20] MEDS: ondansetron/PF 4mg/2ml inj IV ONE (07:14)
[2024-10-20] MEDS: normal saline 1000ml 1,000 ML IV SCH (07:14)
[2024-10-20] MEDS: diphenhydrAMINE 50 mg/ml inj IV ONE (07:15)
[2024-10-20 07:47] LABS: BASOPHILS % (AUTO) 0.5 % (0-1); EOSINOPHILS # (AUTO) 0.1 X10'3 (0-0.9); EOSINOPHILS % (AUTO) 0.5 % (0-6); HEMATOCRIT 39.1 % (35.0-45.0); LYMPHOCYTES # (AUTO) 2.8 X10'3 (1.1-4.8); LYMPHOCYTES % (AUTO) 29.2 % (21-51); MEAN CORPUSCULAR HEMOGLOBIN 32.5 PG (27.0-31.0); MEAN CORPUSCULAR HGB CONC 33.3 g/dL (33.0-36.5); MEAN CORPUSCULAR VOLUME 97.6 FL (78-98); MEAN PLATELET VOLUME 7.8 FL (7.4-10.4); MONOCYTES # (AUTO) 0.7 X10'3 (0-0.9); MONOCYTES % (AUTO) 7.7 % (2-12); NEUTROPHILS % (AUTO) 62.1 % (42-75); PLATELET COUNT 237 X10'3 (140-440); RED CELL DISTRIBUTION WIDTH 13.2 % (11.5-14.5); WHITE BLOOD COUNT 9.7 X10'3 (4.5-11.0)
[2024-10-20] MEDS: morphine 4 MG/ML inj SYRINge IV ONE (07:57)
[2024-10-20 07:59] LABS: ALANINE AMINOTRANSFERASE 14 U/L (12-78); ALBUMIN/GLOBULIN RATIO 1.1 (1.1-1.5); ALKALINE PHOSPHATASE 68 IU/L (46-116); ANION GAP 10 (8-16); ASPARTATE AMINO TRANSFERASE 14 U/L (10-37); BILIRUBIN,TOTAL 0.4 MG/DL (0.1-1.0); BLOOD UREA NITROGEN 19 MG/DL (7-18); BUN/CREATININE RATIO 31.7 (10.0-20.0); CHLORIDE 113 MMOL/L (99-107); GLUCOSE 79 MG/DL (70-104); SODIUM 147 MMOL/L (135-145); TOTAL CARBON DIOXIDE 24.2 MMOL/L (24-32); TOTAL PROTEIN 5.8 G/DL (6.4-8.2); eCRCL 78 ML/MIN; eGFR > 90 ML/MIN
[2024-10-20] MEDS ORDERED: ONDA-243 PO (08:28)
[2024-10-20] MEDS ORDERED: HYDR-3973 PO (08:28)
[2024-10-20] MEDS: potassium Cl 20 mEq SR tablet PO STA (08:30)
[2024-10-20] MEDS: magnesium sulf-water 2g/50mL 50 ML IV ONE (08:31)
[2024-10-20] MEDS ORDERED: methylPREDNISolone sod succ 125mg/2ml vial IV ONE (09:05)
[2024-10-20] MEDS: albuterol 2.5 MG/3 ML nebule CONTNEB STA (09:35)
[2024-10-20] MEDS: budesonide 0.5mg/2ml UD nebule IH ONE (09:35)
[2024-10-20 10:54] VITALS: BP 125/62; PULSE 80; RESP 16; TEMP 98.8; O2SAT 98
== END 2024-10-20 10:50 | disposition home or self-care (01) ==
LOC: ER 05:16
DX: G89.29 Other chronic pain (principal); M54.9 Dorsalgia, unspecified; F12.90 Cannabis use, unspecified, uncomplicated; E07.9 Disorder of thyroid, unspecified; Z56.0 Unemployment, unspecified; Z88.2 Allergy status to sulfonamides; Z88.8 Allergy status to other drugs, medicaments and biological substances; Z79.899 Other long term (current) drug therapy; Z98.890 Other specified postprocedural states; Z72.89 Other problems related to lifestyle
CPT/HCPCS: 36415; 80053; 85025; 96365; 96366; 96375; 99284; J1200; J1885; J2270; J2405; J7030; A4615

== ENCOUNTER 2025-04-06 22:24 | Emergency (ER) | payer OTHER ==
[~2025-04-06] VITALS: Ht 157.5 cm; Wt 56.9 kg
[~2025-04-06 22:24] MED LIST changes: +LIDO-52 TOP; -LIDO700A32 TOP
--- NOTE | 2025-04-06 22:52 | Physician Documentation ---
History of Present Illness ~ Chief Complaint: Neck pain Stated Complaint: NECK PAIN Time Seen by MD: 22:44 Primary Medical [facility] This is a 59-year-old female with a known history of neck fusion, recurrent flares of torticollis, presents for evaluation of right-sided neck pain that began after she lifted something heavy three days ago. The pain is so severe that it causes her nausea. She is not able to hold anything down. Neck pain is worse with range of motion. Did not attempt to treat it with a any medication but attempted to smoke some marijuana which in turn made her cough, which in turn made her vomit. Denies any chest pain, difficulty breathing, abdominal pain. No concern for tobacco, alcohol or illicit substances use Medication Reconciliation Allergies: Coded Allergies: Sulfa (Sulfonamide Antibiotics) (Unverified Allergy, Severe, 04/06/25) promethazine (Verified Allergy, Intermediate, AFFECTED EYESIGHT, 04/06/25) duloxetine HCl (Unverified Allergy, Unknown, 04/06/25) gabapentin (Unverified Allergy, Unknown, 04/06/25) meloxicam (Unverified Allergy, Unknown, 04/06/25) methadone (Unverified Allergy, Unknown, 04/06/25) metoclopramide HCl (Unverified Allergy, Unknown, 08/25/22) prochlorperazine (Verified Allergy, Unknown, 08/25/22) prochlorperazine edisylate (Unverified Allergy, Unknown, 08/25/22) prochlorperazine maleate (Unverified Allergy, Unknown, 08/25/22) promethazine HCl (Unverified Allergy, Unknown, 08/25/22) Uncoded Allergies: STEROIDS (Allergy, Unknown, 11/22/20) Scheduled Amlodipine* (Norvasc*), 0 MG PO DAILY, (Reported) Diclofenac Sodium (Diclofenac Sodium), 1 APPLIC TOP Q6H Levothyroxine Sodium* (Levoxyl*), 112 MCG PO DAILY, (Reported) Lidocain/Me-Salicyl/Caps/Menth (Sucthjyxa-i-Am Cream), 20 APPLIC TP BID Lidocaine (Lidoderm), 1 PATCH TOP DAILY Lidocaine/Methyl Saad/Menthol (Lidopro Patch), 1 PATCH TOP DAILY Ondansetron Hcl (Zofran), 1 TAB PO Q6H Ondansetron ODT* (Zofran ODT*), 4 MG PO PRN, (Reported) Orphenadrine Citrate (Norflex), 1 TAB PO Q12H PRN Oxycodone Hcl (Oxycodone Hcl), 20 MG PO PRN, (Reported) Scheduled PRN ONDANSETRON ODT 4mg tablet (Ondansetron Odt), 1 TABLET PO Q6H PRN for nausea/vomiting ONDANSETRON ODT 4mg tablet (Ondansetron Odt), 1 TAB PO Q6H PRN PRN for nausea/vomiting ONDANSETRON ODT 4mg tablet (Ondansetron Odt), 1 TAB PO Q6H PRN PRN for nausea/vomiting Ondansetron 8mg ODT (Ondansetron Odt), 1 TAB PO Q8H PRN for nausea/vomiting Oxycodone HCl/Acetaminophen (Percocet 5-325 mg Tablet), 1 TAB PO TID PRN PRN for moderate or severe pain 4-10 Past Medical History Past Medical History: Thyroid (unspecified), Chronic Pain, Chronic Back Pain Past Surgical History: orthopedic surgeries, other Alcohol Use: Occasionally Drug Use: marijuana Lives with: Spouse Lives In: Home Occupation: unemployed Review of Systems ROS 10 point review of systems was performed and unless noted above in HPI is negative for acute process/complaint. Physical Exam Vital Signs: Temperature: 97.4, Source: Temporal, Heart Rate: 82, Respiratory Rate: 17, BP: 186/85, Pulse Oximetry: 100, Weight: 56.900 Physical Exam Physical examination: GENERAL: Awake, alert, oriented, GCS 15, no apparent distress, non-toxic appearing, answers questions, follows commands appropriately. HEENT: Atraumatic, normocephalic, pupils equal, extraocular muscles intact Active gross movements, sclerae anicteric, mucus membranes moist, no stridor. NECK: Midline, no JVD CARDIOVASCULAR: Good skin perfusion without evidence of pallor, mottling. PULMONARY: Nonlabored, symmetric chest rise, no audible wheezing, no accessory muscle use, no respiratory distress, speaking in full sentences. GASTROINTESTINAL: Not distended. NEUROLOGIC: Lucid with normal mental status. Normal facial symmetry. Moves all extremities symmetrically and with purpose. No truncal ataxia. Speech is fluid without evidence of dysarthria or aphasia, no focal deficits appreciated. EXTREMITIES: Acute deformities Skin: warm, dry PSYCHIATRIC: Normal affect, normal insight, normal concentration. Focused exam: There is no tenderness to palpation over midline cervical spine, no step-offs. She denies any trauma. There is muscle spasm of the upper belly of the right trapezius. Progress Results/Orders Results/Orders Completed Orders - CATY PRASAD DO Cbc/Diff (04/06/25 22:47) Lipase (04/06/25 22:47) MG (04/06/25 22:47) Hs Troponin I W Calculations (04/06/25 22:47) CMP (04/06/25 22:47) Orphenadrine Citrate Inj. (Norflex Inj.) (04/06/25 22:50) Normal Saline 1000ml (0.9% Sodium Chlori (04/06/25 23:15) Diphenhydramine Inj (Benadryl Inj.) (04/07/25 00:25) Morphine 4mg/Ml Inj. (Morphine Inj.) (04/07/25 00:25) Medications Received in ER Medications (Trade) Dose Ordered Sig/Shawna Route PRN Reason Start Time Stop Time Status Last Admin Dose Admin (Norflex inj.) 60 mg ONCE ONCE IM 04/06/25 22:50 04/06/25 22:51 DC 04/06/25 22:58 60 MG Sodium Chloride 1,000 ml @ 1,000 mls/hr ONCE ONCE IV 04/06/25 23:15 04/07/25 00:14 DC 04/06/25 23:47 1,000 MLS/HR (Benadryl inj.) 25 mg ONCE ONCE IV 04/07/25 00:25 04/07/25 00:26 DC 04/07/25 00:28 25 MG (morphine inj.) 4 mg ONCE ONCE IV 04/07/25 00:25 04/07/25 00:26 DC 04/07/25 00:31 4 MG Vital Signs 04/06/25 22:33 Temp 97.4 Pulse 82 Resp 17 B/P (MAP) 186/85 Pulse Ox 100 Laboratory Tests Test 9/5/25 23:01 White Blood Count 11.7 H Red Blood Count 4.70 Hemoglobin 15.1 Hematocrit 45.5 H Mean Corpuscular Volume 96.9 Mean Corpuscular Hemoglobin 32.1 H Mean Corpuscular Hemoglobin Concent 33.2 Red Cell Distribution Width 13.2 Platelet Count 325 Mean Platelet Volume 8.0 Neutrophils (%) (Auto) 81.3 H Lymphocytes (%) (Auto) 13.5 L Monocytes (%) (Auto) 4.7 Eosinophils (%) (Auto) 0.2 Basophils (%) (Auto) 0.3 Neutrophils # (Auto) 9.5 H Lymphocytes # (Auto) 1.6 Monocytes # (Auto) 0.6 Eosinophils # (Auto) 0.0 Basophils # (Auto) 0.0 CBC Comment Sodium Level 142 Potassium Level 4.0 Chloride Level 106 Carbon Dioxide Level 25.2 Anion Gap 11 Blood Urea Nitrogen 16 Creatinine 0.94 H Estimated GFR/1.73 m2 61 BUN/Creatinine Ratio 17.0 Glucose Level 161 H Calcium Level 9.3 Magnesium Level 2.3 Total Bilirubin 0.6 Aspartate Amino Transf (AST/SGOT) 15 Alanine Aminotransferase (ALT/SGPT) 24 Alkaline Phosphatase 101 Troponin I High Sensitivity 7 Total Protein 8.2 Albumin 4.4 Globulin 3.8 Albumin/Globulin Ratio 1.2 Lipase 46 Chemistry Comments Medical Decision Making Findings Facility Status: ED Holds, [facility] process The plan was discussed with the patient, who demonstrates clear understanding of the plan and is in agreement with the plan unless otherwise noted in the chart. All questions have been answered, all concerns were addressed unless otherwise documented. I was available throughout their ED stay for frequent reassessment and questions. Differential Diagnoses (considered and possible or likely): [Neck spasm, less likely neck fracture subluxation given lack of trauma, pain causing nausea and vomiting resultant in dehydration, electrolyte derangement.] ??Differential Diagnoses (considered and unlikely, not requiring evaluation currently): [No evidence of brachial plexus injury, no evidence of focal deficits] MDM Data Please see HPI for the following: Independent Historians and external Records Review. Historian: [Patient] Independent Historians: ?[EMS, record review] Medication Management: [Reviewed medication list] Social History and determinants: [Reviewed] Please see the body of the note for the following: Any independent interpretations of ECG, imaging studies. All vitals signs/haemodynamics, ordered tests were independently reviewed and interpreted by myself. Nursing triage complaint and vitals reviewed, additional nursing notes were revi ewed as available and I agree unless otherwise noted or documented in contradiction in the chart Vital Signs: Independently reviewed Labs: Independently interpreted Imaging: Independently interpreted Old Medical Records: Independently reviewed, see HPI for relevant summary and information Pulse Oximetry: [97%] interpreted as [normal on room air] by me [Mesh Cutter: [Regular Rate, Regular rhythm, no ectopy, NSR] reviewed and interpreted by me] Additionally notably showing: [Hemodynamics reviewed. Not febrile, not tachycardic, no evidence of hypotension respiratory distress. CBC normal. No leukocytosis, no anemia, metabolic panel shows mild dehydration. Lipase is normal. Troponin is negative.] Tests considered but not ordered include: [Imaging has been considerably including CT neck, however the patient adamantly denies any trauma] Social Determinants of Health Impact: Patient was evaluated in [facility], [facility] [place] to healthcare due to below par ratio of patient to medical providers. [] Comorbid Conditions Impacting Present Evaluation and Care/Treatment: [Prior hist ory of neck spasms] Management Discussions with other Healthcare Providers: [None] Treatment and Disposition Medication Management (Given or considered): [Pain management]. See EMR for details Consideration for Hospitalization/Escalation/Deescalation of Care: Admission for observation has been considered, [however the patient is able to tolerate p.o., their symptoms are controlled, they are able to rely on oral medications, and their chief complaint/diagnosis can be managed on outpatient basis.] ?ED Course:?[Pain improved.] ?Shared decision making:?[Patient is hemodynamically stable for discharge home with follow with their primary care provider. [ ] Specific and cautious return precautions provided and discussed with full understanding. Any incidental f indings were also discussed and follow up recommendations given. [] All questions answered. Patient/family were able to verbalize back return precautions. Patient/family agree to plan. Copies of imaging and laboratory studies were provided.] Code status:?FULL Please see the full Electronic Medical Record for full details of nursing documentation, medications list, other records of complete past medical history and conditions, vital signs, laboratory studies, and any radiologic study interpretations by radiologists. Portions of this note were completed using [employer] dictation software and as a result there may exist minor errors in spelling. I have reviewed elements of past family and social history and agree as included in note. Departure Disposition: HOME / SELF CARE / HOMELESS Impression: Primary Impression: Neck pain Condition: Improved Discharge Instructions: Cervical Sprain Referrals: NO PRIMARY CARE PROVIDER (PCP) Prescriptions Naproxen (Naproxen) 375 Mg Tablet 1 TAB PO Q12H for pain for 10 Days, #20 TAB 0 Refills with food Prov: CATY PRASAD DO 04/07/25 Cyclobenzaprine HCl (Cyclobenzaprine HCl) 5 Mg Tablet 1 TAB PO TID PRN PRN for muscle spasms for 10 Days, #30 TAB 0 Refills Prov: CATY PRASAD DO 04/07/25 Education Educated: Patient Educated regarding: diagnosis, treatment, prognosis, need for follow up Signature Scribe Signature: No scribe Attestation: This note accurately reflects clinical decisions, work performed by myself, DO OSMAR Fernandez NICHOLAS M DO Apr 06, 2025 22:52
[2025-04-06] MEDS: orphenadrine citrate 60mg/2ml inj. IM ONE (22:58)
[2025-04-06 23:16] LABS: MEAN PLATELET VOLUME 8.0 FL (7.4-10.4); RED CELL DISTRIBUTION WIDTH 13.2 % (11.5-14.5)
[2025-04-06 23:32] LABS: CREATININE 0.94 MG/DL (0.40-0.90); TOTAL CARBON DIOXIDE 25.2 MMOL/L (24-32); eCRCL 50 ML/MIN; eGFR 61 ML/MIN
[2025-04-06] MEDS: normal saline 1000ml 1,000 ML IV ONE (23:47)
[2025-04-07] MEDS: morphine 4 MG/ML inj SYRINge IV ONE (00:31)
[2025-04-07] MEDS ORDERED: NAPR-1166 PO (01:13)
[2025-04-07] MEDS ORDERED: CYCL-920 PO (01:13)
[2025-04-07 01:26] VITALS: BP 166/82; PULSE 82; RESP 16; TEMP 97.4; O2SAT 98
== END 2025-04-07 01:33 | disposition home or self-care (01) ==
LOC: ER 22:25
DX: M54.2 Cervicalgia (principal); R06.02 Shortness of breath; Z88.2 Allergy status to sulfonamides; Z88.8 Allergy status to other drugs, medicaments and biological substances; Z79.899 Other long term (current) drug therapy
CPT/HCPCS: 36415; 80053; 83690; 83735; 84484; 85025; 96361; 96372; 96374; 96375; 99284; J1200; J2270; J2360; J7030